=== PATIENT | male | born 1975 | race Hispanic/Latino ===

== ENCOUNTER 2023-02-23 08:53 | Emergency (ER) | payer OTHER ==
[~2023-02-23] VITALS: Ht 177.8 cm; Wt 73.9 kg
[2023-02-23 09:20] LABS: BASOPHILS % (AUTO) 0.7 % (0.0-5.0); EOSINOPHILS % (AUTO) 1.5 % (0.0-8.0); HEMATOCRIT 48.9 % (42-54); LYMPHOCYTES % (AUTO) 16.4 % (21.0-51.0); MEAN CORPUSCULAR HGB CONC 32.9 g/dL (32.0-36.0); MEAN CORPUSCULAR VOLUME 94.2 fL (79-99); MONOCYTES % (AUTO) 8.1 % (3.0-13.0); PLATELET COUNT (AUTO) 290 K/uL (130-400); RED BLOOD CELL COUNT(AUTO) 5.19 MIL/uL (4.50-6.20); RED CELL DISTRIBUTION WIDTH 13.3 % (11.0-15.5); WHITE BLOOD COUNT (AUTO) 10.1 K/uL (4.8-10.8)
[2023-02-23] MEDS ORDERED: LACTATED RINGERS 1000ML IV SCH (09:30)
[2023-02-23 09:37] LABS: CREATININE 1.2 mg/dL (0.5-1.5); POTASSIUM 3.9 mmol/L (3.5-5.1)
[2023-02-23 09:41] LABS: APPEARANCE,URINE CLEAR (CLEAR); BILIRUBIN,URINE SMALL mg/dL (NEGATIVE); COLOR,URINE YELLOW (YELLOW); GLUCOSE, URINE (UA) NEGATIVE (NEGATIVE); KETONES,URINE 40 mg/dL (NEGATIVE); LEUKOCYTE ESTERASE ,URINE NEGATIVE Leu/uL (NEGATIVE); NITRATE,URINE NEGATIVE (NEGATIVE); OCCULT BLOOD,URINE NEGATIVE (NEGATIVE); PROTEIN,URINE NEGATIVE (NEGATIVE)
[2023-02-23 09:43] LABS: ALBUMIN 4.3 g/dL (3.5-5.0)
[2023-02-23 09:46] LABS: TOTAL PROTEIN, SERUM 8.1 g/dL (6.0-8.3)
[2023-02-23 09:51] LABS: BACTERIA,URINE Rare /HPF (None Seen); RBC,URINE 0-1 /HPF (0-1); WBC,URINE None Seen /HPF (0-1)
[2023-02-23 09:52] LABS: MUCUS,URINE Moderate LPF (None Seen); SQUAMOUS EPITHELIAL CELL,UR Rare /HPF (0-2)
[2023-02-23] MEDS ORDERED: DOXY-469 PO (10:00)
[2023-02-23] MEDS ORDERED: DOXYCYCLINE HYCLATE 100 MG TABLET PO SCH (10:00)
[2023-02-23 10:35] VITALS: BP 126/74
== END 2023-02-23 10:37 | disposition home or self-care (01) ==
LOC: EDH 08:53
DX: R53.1 Weakness (principal); R68.83 Chills (without fever); R53.81 Other malaise; Z98.890 Other specified postprocedural states
CPT/HCPCS: 99283; 96360; 80053; 85025; 81001; 36415; 86757; J7120

== ENCOUNTER 2024-05-22 08:00 | Emergency (ER) | payer OTHER ==
[~2024-05-22] VITALS: Ht 175.3 cm; Wt 74.8 kg
[~2024-05-22 08:00] MED LIST: DOXY100C61 PO
[2024-05-22] MEDS: MORPHINE 4 MG SYG IVP ONE (08:34)
[2024-05-22] MEDS: DEXAMETHASONE SOD PHOSPHATE 4 MG/ML 1ML VIAL IVP ONE (08:35)
[2024-05-22] MEDS: KETOROLAC 30MG VIAL (30MG/ML) IVP ONE (08:36)
[2024-05-22] MEDS: ORPHENADRINE CITRATE 30 MG/ML ML IVP ONE (08:36)
[2024-05-22] MEDS ORDERED: PRED20TA3 PO (10:14)
[2024-05-22 10:26] VITALS: BP 119/68; PULSE 74; RESP 18; O2SAT 98
== END 2024-05-22 10:33 | disposition home or self-care (01) ==
LOC: EDH 08:00
DX: M54.16 Radiculopathy, lumbar region (principal); Z98.890 Other specified postprocedural states
CPT/HCPCS: 99285; 96374; 96375; 72131; J1100; J2270; J1885; J2360